=== PATIENT | female | born 1965 | race Caucasian/White ===

== ENCOUNTER → 2018-03-16 | Outpatient (CLI) | payer BC, OTHER ==
[2018-03-16 08:24] LABS: HEMATOCRIT 35.9 % (37.0-47.0); HEMOGLOBIN 12.1 gm/dL (12.0-15.0); MCH 27.7 pg (26.0-34.0); MCHC 33.7 g/dL (28.0-37.0); MCV 82.2 fL (80.0-100.0); RBC 4.37 mil/uL (4.20-5.00); WBC 4.4 thou/uL (4.0-11.0)
[2018-03-16 08:50] LABS: ALBUMIN 4.2 g/dL (3.4-5.0); CALCIUM 9.8 mg/dL (8.5-10.1); CREATININE 0.9 mg/dL (0.6-1.0); POTASSIUM 4.3 mmol/L (3.5-5.1); TOTAL BILIRUBIN 0.4 mg/dL (<0.1-1.0); TOTAL PROTEIN 7.8 g/dL (6.4-8.2)
== END ==
LOC: CAT 07:54
PROVIDERS: Internal Medicine Cardiovascular Disease
DX: I48.91 Unspecified atrial fibrillation (principal); I89.8 Other specified noninfective disorders of lymphatic vessels and lymph nodes

== ENCOUNTER 2018-03-26 06:35 | Observation (INO) | payer BC, OTHER ==
[~2018-03-26] VITALS: Ht 172.7 cm; Wt 74.3 kg
[2018-03-26] VITALS (10 sets, daily range): BP systolic 98–136; BP diastolic 70–80
--- NOTE | ~2018-03-26 | D ---
[facility] [place] [address] DISCHARGE SUMMARY Name: HATTIE CAMARGO Room #: 207-P [facility]..#: [id number] Admission: 03/26/18 Attend Phys: Brady Swift MD Discharge: Date of : 67 Report #: [id number] THIS REPORT FOR: //name// CC: Brady Nealveronique DATE OF SERVICE: 03/27/2018 DISCHARGE DIAGNOSIS: Paroxysmal atrial fibrillation. PROCEDURE PERFORMED: AFib ablation. HISTORY OF PRESENT ILLNESS: The patient is a 52-year-old female with history of paroxysmal atrial fibrillation, here for an ablation. She underwent successful ablation with isolation of the 4 pulmonary veins. There were no procedure complications. HOSPITAL COURSE: The patient was monitored in the CCU overnight had no issues on telemetry, she remained in sinus rhythm. On the day of discharge, she had no complaints. She denied chest pain, shortness of breath or any groin discomfort. On physical exam, heart was regular rate and rhythm with no murmurs, rubs, gallops. Lungs were clear to auscultation bilaterally and her right groin showed no bruising or hematoma. As such, she was deemed stable for discharge home. She will continue with her same home medications including diltiazem and Pradaxa therapy. She will follow up in 2 weeks with my nurse practitioner and she will see me back in 3 months. By: [id number] Brady Swift MD /trip
--- NOTE | ~2018-03-26 | P ---
[facility] [place] [address] PROCEDURE REPORT Name: HATTIE CAMARGO Room #: 207-P [facility]..#: [id number] Admission: 03/26/18 Attend Phys: Brady Swift MD Discharge: Date of : 67 Report #: [id number] THIS REPORT FOR: //name// CC: Brady Abreu PREOPERATIVE DIAGNOSIS: Paroxysmal atrial fibrillation. POSTOPERATIVE DIAGNOSIS: Paroxysmal atrial fibrillation. HISTORY: The patient is a 52-year-old with paroxysmal a-fib ablation. PROCEDURES PERFORMED: 1. A-fib ablation, CPT code 75055. 2. 3D mapping, CPT code 31530. 3. Intracardiac echo, CPT code 64990. ANESTHESIA: The patient underwent general anesthesia with no anesthesia related complications. DESCRIPTION OF PROCEDURE: The patient underwent informed consent. We discussed the details of the procedure including the risks, which include, but not limited to bleeding, vascular damage, cardiac perforation, as well as stroke or [place]. She understood these risks and is willing to proceed. The patient was brought to the EP laboratory in a fasting and sedated state, prepped and draped in a sterile fashion. I injected lidocaine at the right groin region, obtained access to the right femoral vein times 3, placing an 8, 9, and 7-Lithuanian short sheath using the modified Seldinger technique. Next, under fluoroscopy, I placed an ice catheter into the right atrium and a decapolar catheter easily in the coronary sinus. Next, a detailed 3D geometry was created using [employer] with specific emphasis of the two left and two right pulmonary veins. The patient was then systemically heparinized and a transseptal was performed using a Callands needle and a SL1 sheath. The first side I tried to go transseptal, the needle did not cross. I therefore went back up with the SL1 sheath, pulled back down and came on with the Callands needle and again it did not completely get through the septum. I therefore came on third time with the needle at the same location and this time, we could see that I got into the left atrium. I then placed a wire into the left superior pulmonary vein and tried to advance the SL1 sheath into the left atrium and this was unsuccessful. I therefore exchanged for the cryo sheath and I was able to cross with the cryo sheath, as the wire was in the left superior pulmonary vein. Next, I obtained a [employer] Kc Lasso catheter and created a detailed 3D geometry and voltage map of the left atrium. Next, I exchanged the SL1 for the cryoballoon and we started isolating the veins. At baseline, the patient was in sinus rhythm with a sinus cycle length of 1357 milliseconds, KS interval 180 milliseconds, QRS duration 80 milliseconds, QT interval 40 milliseconds. Next, [facility] [address] [place] [address] PROCEDURE REPORT Name: HATTIE CAMARGO Room #: 207-P [facility] M.RChelo#: [id number] Admission: 03/26/18 Attend Phys: Brady Swift MD Discharge: Date of : 67 Report #: [id number] I started by isolating the left superior pulmonary vein. I performed two 3-minute freezes. The vein isolated within 40 seconds of the second freeze. I then turned my attention to the left inferior pulmonary vein. I performed a 4-minute freeze. The vein isolated within 39 seconds. I performed a second freeze in the left inferior pulmonary vein of 180 seconds. I then turned my attention to the right superior pulmonary vein. I performed a single 3-minute freeze as the vein isolated within 49 seconds. I then turned my attention to the right inferior pulmonary vein. I performed a single 4-minute freeze, as this vein isolated within 25 seconds. I re-interrogated all the veins and there was evidence of entrance and exit block in all veins. I then used a Lasso catheter again and performed a voltage map and this clearly demonstrated that the four veins were all isolated and the voltage map was consistent with a wide circumferential ablation of the left atrium. Post-ablation, I performed a basic EP study. AV block was noted at 270 milliseconds. Atrial ERP was noted at 240 milliseconds at a [address] cycle length. I performed aggressive atrial burst pacing and I could not induce any SVT or atrial fibrillation or atrial flutter. Post-ablation, she was in sinus rhythm with a sinus cycle length of 610 milliseconds, KS interval 175 milliseconds, QRS duration 90 milliseconds, QT interval 370 milliseconds. Using intracardiac ultrasound, I verified there was no evidence of pericardial effusion and as such, the patient received systemic protamine and once the ACT was within acceptable range, catheters and sheaths were pulled and hemostasis was obtained. CONCLUSIONS: 1. Successful a-fib ablation with isolation of the 4 pulmonary veins. 2. Normal SA cholo function. 3. Normal AV cholo function. 4. Normal His-Purkinje function. 5. No other inducible arrhythmias on EP study. By: [id number] Brady Swift MD /nt
--- NOTE | ~2018-03-26 | EKG ---
[address] [address] ELECTROCARDIOGRAM REPORT Name: HATTIE CAMARGO Room #: [facility]#: [id number] Admission: 03/26/18 Attend Phys: Brady Swift MD Discharge: 03/27/18 Date of : 67 Report #: [id number] THIS REPORT FOR: //name// [facility] Test Date: 2018-03-27 Test Time: 06:58:49 Pat Name: HATTIE CAMARGO Department: Room: [facility] Gender: F Inspector Technician: : 1965 Requested By: Brady Swift Order Number: [id number] MD: Brady Swift Measurements Intervals [place] Rate: 77 P: 73 VT: 176 QRS: 94 QRSD: 83 T: 118 QT: 554 QTc: 628 Interpretive Statements Sinus rhythm Borderline right axis deviation Nonspecific T abnrm, anterolateral leads No previous ECG available for comparison Electronically Signed On 03-28-2018 20:29:07 MANUSCRIPTS CURATOR by Brady Swift [email or web address] <ELECTRONICALLY SIGNED> By: Brady Swift MD 03/28/182028 0658 Brady Swift MD /EPI
[2018-03-26 07:21] LABS: ABSOLUTE NEUTROPHILS 2.4 thou/uL (1.4-8.2); BASOPHILS 0.9 % (0.0-2.0); EOSINOPHILS 5.9 % (0.0-3.0); HEMATOCRIT 33.7 % (37.0-47.0); HEMOGLOBIN 11.6 gm/dL (12.0-15.0); LYMPHOCYTES 27.5 % (24.0-44.0); MCH 28.4 pg (26.0-34.0); MCHC 34.4 g/dL (28.0-37.0); MCV 82.6 fL (80.0-100.0); PLATELET COUNT 233 thou/uL (150-400); POLYS 57.7 % (36.0-66.0); RBC 4.08 mil/uL (4.20-5.00); RDW 15.6 % (10.5-14.5); WBC 4.2 thou/uL (4.0-11.0)
[2018-03-26] MEDS ORDERED: CALCIUM 600 +1 EAC1 PO (07:24)
[2018-03-26] MEDS ORDERED: AZELEX30 GM TOP (07:25)
[2018-03-26] MEDS ORDERED: VITAMIN B COMP1 EACH PO (07:26)
[2018-03-26] MEDS ORDERED: ZYRTEC10 M5 PO (07:26)
[2018-03-26] MEDS ORDERED: PRADAXA150 MG PO (07:27)
[2018-03-26] MEDS ORDERED: FLONASE 0.05%50 MCG PO (07:27)
[2018-03-26] MEDS ORDERED: CARDIZEM CD120 MG PO (07:27)
[2018-03-26] MEDS ORDERED: SYNTHROID125 MC1 PO (07:28)
[2018-03-26] MEDS ORDERED: VITAMIN D3400 UNIT PO (07:28)
[2018-03-26 07:33] LABS: CALCIUM 9.4 mg/dL (8.5-10.1); CREATININE 0.8 mg/dL (0.6-1.0)
[2018-03-26 07:34] LABS: APTT 31.3 Seconds (24.5-32.8); PROTIME 10.4 Seconds (9.3-11.4)
[2018-03-26 07:38] LABS: TOTAL BILIRUBIN 0.3 mg/dL (<0.1-1.0); TOTAL PROTEIN 7.6 g/dL (6.4-8.2)
[2018-03-27 00:02] VITALS: BP 101/72
[2018-03-27 03:52] VITALS: BP 94/51
[2018-03-27 07:58] VITALS: BP 105/62
[2018-03-27 09:55] VITALS: BP 105/62
== END 2018-03-27 11:00 | disposition home or self-care (01) ==
LOC: CATH 06:35 → 2N 12:59
PROVIDERS: Internal Medicine Cardiovascular Disease
DX: I48.0 Paroxysmal atrial fibrillation (principal); E03.9 Hypothyroidism, unspecified; D51.0 Vitamin B12 deficiency anemia due to intrinsic factor deficiency; Z88.0 Allergy status to penicillin; Z88.2 Allergy status to sulfonamides; Z88.8 Allergy status to other drugs, medicaments and biological substances; Z82.49 Family history of ischemic heart disease and other diseases of the circulatory system; Z72.89 Other problems related to lifestyle; Z79.899 Other long term (current) drug therapy; Z98.890 Other specified postprocedural states
CPT/HCPCS: 62110; 62900; 65020; 65040; 65043; 70005